=== PATIENT | female | born 1975 | race African-American/Black ===

== ENCOUNTER → 2018-01-15 | Outpatient (CLI) | payer OTHER ==
--- NOTE | 2018-01-15 11:31 | CT ---
EXAMINATION TYPE: CT ankle LT wo con DATE OF EXAM: 01/15/2018 COMPARISON: 8 25 cm HISTORY: Eval fibular impingment CT DLP: 235.[address] of the left ankle with reconstruction imaging. TECHNIQUE: Unenhanced CT of the left ankle was performed with bone and soft tissue window settings slater bmitted in the axial coronal and sagittal planes. At a separate workstation [id number] TR imaging was obtai joesph. FINDINGS: There is evidence of postoperative fixation with anterior fixation plate and screws distal tibia and talus. There is tibiotalar fusion noted as well as fusion of the distal fibula and adjacent tibia. I do not see evidence for acute fracture. Well-corticated ossific densities noted. Os calcis is intact. IMPRESSION: 1. Stable tibiotalar arthrodesis. Distal tibiofibular arthrodesis also noted.
== END | disposition home or self-care (01) ==
LOC: RADCTMAIN 09:42
PROVIDERS: ATTEND Orthopaedic Surgery Foot and Ankle Surgery
DX: M93.272 Osteochondritis dissecans, left ankle and joints of left foot (principal); M65.872 Other synovitis and tenosynovitis, left ankle and foot; Z98.1 Arthrodesis status

== ENCOUNTER → 2021-06-16 | Outpatient (CLI) | payer OTHER ==
[2021-06-16 16:23] LABS: Appearance,Urine Cloudy (Clear); Bacteria,Urine Moderate /hpf; Bilirubin,Urine Negative (Negative); Blood,Urine Negative (Negative); Color,Urine Yellow; Glucose,Urine (UA) Negative (Negative); Ketones,Urine Negative (Negative); Leukocyte Esterase,Urine Small (Negative); Mucus,Urine Many /hpf; Nitrite,Urine Positive (Negative); Protein,Urine Trace (Negative); RBC,Urine <1 /hpf (0-5); Specific Gravity,Urine 1.019 (1.001-1.035); Squamous Epithelial Cell,Urine 8 /hpf (0-4); Urobilinogen,Urine <2.0 mg/dL (<2.0); WBC,Urine 11 /hpf (0-5)
[2021-06-16 22:38] LABS: HGB 8.9 g/dL (12.0-15.0); MCH 17.5 pg (27.0-32.0); MCHC 26.2 g/dL (32.0-37.0); MCV 66.7 fL (80.0-97.0); Mean Platelet Volume 10.6 fL (9.5-12.2); Platelet Count 695 X 10*3/uL (140-440); RDW 23.7 % (11.5-14.5); WBC 6.35 X 10*3/uL (4.50-10.00)
[2021-06-16 23:24] LABS: Basophils # (A) 0.03 X 10*3/uL (0.00-0.10); Basophils % (A) 0.5 %; Eosinophils # (A) 0.09 X 10*3/uL (0.04-0.35); Eosinophils % (A) 1.4 %; Lymphocytes # (A) 1.41 X 10*3/uL (0.90-5.00); Lymphocytes % (A) 22.2 %; Monocytes # (A) 0.26 X 10*3/uL (0.20-1.00); Monocytes % (A) 4.1 %; Neutrophils # (A) 4.54 X 10*3/uL (1.80-7.70); Neutrophils % (A) 71.5 %
[2021-06-16 23:25] LABS: Microcytosis (M) 2+; Schistocytes 1+
[2021-06-17 06:33] LABS: Cardiolipin Ab IgG Interp NEGATIVE (NEGATIVE); Cardiolipin Ab IgM Interp NEGATIVE (NEGATIVE); Cardiolipin IgA Antibody <2.0 U/mL; Cardiolipin IgM Antibody <1.5 U/mL
[2021-06-17 06:43] LABS: ALT 15 U/L (8-44); AST 26 U/L (13-35); African American GFR (CKD) 126.7 (60.0-200.0); Albumin/Globulin Ratio 1.29 (1.60-3.17); Alkaline Phosphatase 74 U/L (41-126); Blood Urea Nitrogen <5.0 mg/dL (9.0-27.0); Calcium 8.8 mg/dL (8.7-10.3); Carbon Dioxide 21.7 mmol/L (21.6-31.8); Chloride 105 mmol/L (96-109); Globulin 3.1 g/dL (1.6-3.3); Glucose 85 mg/dL (70-110); Non-African American GFR(CKD) 109.3 (60.0-200.0); Potassium 4.2 mmol/L (3.5-5.5); Sodium 139 mmol/L (135-145); Total Bilirubin 0.4 mg/dL (0.2-1.2); Total Protein 7.1 g/dL (6.2-8.2)
[2021-06-19 11:54] LABS: Anti-Thrombin III Antigen 77 % (80 - 120); Protein S Antigen 109 % (50 - 140)
== END | disposition home or self-care (01) ==
LOC: LABWHC1 15:11
PROVIDERS: ATTEND Psychiatry & Neurology Neurology
DX: I63.9 Cerebral infarction, unspecified (principal)
CPT/HCPCS: 36415; 80053; 81001; 81241; 81291; 85025; 85301; 85303; 85305; 85306; 85610; 85613; 85730; 86147

== ENCOUNTER → 2022-09-21 | Outpatient (CLI) | payer OTHER ==
[2022-09-21 23:34] LABS: Chol/HDL Ratio 4.26 Ratio; LDL Cholesterol,Calculated 65.5 mg/dL (0.0-131.0)
[2022-09-21 23:39] LABS: ALT 10 U/L (8-44); AST 19 U/L (13-35); African American GFR (CKD) 133.6 (60.0-200.0); Albumin 3.6 g/dL (3.8-4.9); Alkaline Phosphatase 99 U/L (41-126); Blood Urea Nitrogen 3.5 mg/dL (9.0-27.0); Calcium 9.5 mg/dL (8.7-10.3); Carbon Dioxide 23.8 mmol/L (20.0-27.5); Chloride 100 mmol/L (96-109); Globulin 3.6 g/dL (1.6-3.3); Glucose 68 mg/dL (70-110); Non-African American GFR(CKD) 115.3 (60.0-200.0); Sodium 136 mmol/L (135-145); Total Protein 7.2 g/dL (6.2-8.2)
[2022-09-21 23:52] LABS: HCT 31.8 % (37.2-46.3); HGB 8.3 g/dL (12.0-15.0); MCH 16.7 pg (27.0-32.0); MCHC 26.1 g/dL (32.0-37.0); Mean Platelet Volume 10.4 fL (9.5-12.2); Microcytosis (M) 3+; NRBC Per 100 WBC 0 /100 WBCS (0.0-0.0); Platelet Count 823 X 10*3/uL (140-440); RBC 4.97 X 10*6/uL (4.10-5.20); RDW 23.1 % (11.5-14.5); WBC 11.29 X 10*3/uL (4.50-10.00)
[2022-09-24 12:08] LABS: % Iron Saturation 2.26 (12.00-45.00)
== END | disposition home or self-care (01) ==
LOC: LABWHC1 14:32
PROVIDERS: ATTEND Internal Medicine Interventional Cardiology
DX: E78.2 Mixed hyperlipidemia (principal); D64.9 Anemia, unspecified
CPT/HCPCS: 36415; 80053; 80061; 83540; 83550; 85027

== ENCOUNTER → 2023-01-21 | Outpatient (CLI) | payer OTHER ==
--- NOTE | 2023-01-22 08:29 | MM ---
Reason for Exam: Screening (asymptomatic). Last mammogram was performed 8 year(s) and 3 month(s) ago. Patient History: Menarche at age 11. First Full-Term at age 28. Maternal aunt had breast cancer, age 65. Risk Values: Mary 5 year model risk: 1.0%. NCI Lifetime model risk: 10.2%. Prior Study Comparison: 10/25/2014 Bilateral Screening Mammogram, [facility] [place]. Tissue Density: There are scattered fibroglandular densities. Findings: Analyzed By CAD. There is no suspicious group of microcalcifications or new suspicious mass in either breast. Overall Assessment: Negative, BI-RAD 1 Management: Screening Mammogram of both breasts in 1 year. A clinical breast exam by your physician is recommended on an annual basis and results should be correlated with mammographic findings. Electronically signed and approved by: Aleksandr De La Cruz M.D. Radiologis
== END | disposition home or self-care (01) ==
LOC: RADMAMWWP 07:58
PROVIDERS: ATTEND Obstetrics & Gynecology
DX: Z12.31 Encounter for screening mammogram for malignant neoplasm of breast (principal); Z80.3 Family history of malignant neoplasm of breast
CPT/HCPCS: 77063; 77067

== ENCOUNTER → 2023-02-18 | Outpatient (CLI) | payer OTHER ==
[2023-02-18 17:04] LABS: HCT 44.5 % (37.2-46.3); HGB 13.8 g/dL (12.0-15.0); MCH 26.7 pg (27.0-32.0); MCV 86.2 fL (80.0-97.0); Mean Platelet Volume 10.8 fL (9.5-12.2); NRBC Per 100 WBC 0 /100 WBCS (0.0-0.0); Platelet Count 370 X 10*3/uL (140-440); RBC 5.16 X 10*6/uL (4.10-5.20); RDW 14.4 % (11.5-14.5); WBC 8.33 X 10*3/uL (4.50-10.00)
[2023-02-18 17:58] LABS: % Iron Saturation 9.98 (12.00-45.00); Chol/HDL Ratio 3.88 Ratio; Iron 36 ug/dL (50-170); LDL Cholesterol,Calculated 81.1 mg/dL (0.0-131.0); Total Iron Binding Capacity 360 ug/dL (228-460)
[2023-02-18 19:01] LABS: HIV 2 AB Non-Reactive (Non-Reactive); HIV AB P24 Non-Reactive (Non-Reactive); HIV P24 AG Non-Reactive (Non-Reactive)
== END | disposition home or self-care (01) ==
LOC: LABWHC1 08:12
PROVIDERS: ATTEND Internal Medicine
DX: E78.5 Hyperlipidemia, unspecified (principal); D64.9 Anemia, unspecified; E03.9 Hypothyroidism, unspecified
CPT/HCPCS: 36415; 80061; 82306; 83540; 83550; 84439; 84443; 84481; 85027; 87390

== ENCOUNTER → 2023-11-19 | Outpatient (CLI) | payer OTHER ==
[2023-11-19 20:06] LABS: Blood Urea Nitrogen 5.4 mg/dL (9.0-27.0); Potassium 3.9 mmol/L (3.5-5.5)
== END | disposition home or self-care (01) ==
LOC: LABWHC1 14:42
PROVIDERS: ATTEND Dermatology Procedural Dermatology
DX: L70.0 Acne vulgaris (principal); A63.0 Anogenital (venereal) warts
CPT/HCPCS: 36415; 82565; 84132; 84520

== ENCOUNTER → 2024-01-22 | Outpatient (CLI) | payer OTHER ==
[2024-01-23 02:12] LABS: Basophils # (A) 0.05 X 10*3/uL (0.00-0.10); Basophils % (A) 0.5 %; Eosinophils # (A) 0.13 X 10*3/uL (0.04-0.35); Eosinophils % (A) 1.3 %; HCT 46.1 % (37.2-46.3); MCH 28.5 pg (27.0-32.0); MCHC 32.5 g/dL (32.0-37.0); MCV 87.6 FL (80.0-97.0); Mean Platelet Volume 10.9 FL (9.5-12.2); Monocytes # (A) 0.41 X 10*3/uL (0.20-1.00); Monocytes % (A) 4.1 %; NRBC Per 100 WBC 0 X 10*3/uL (0.00-0.01); Neutrophils # (A) 7.37 X 10*3/uL (1.80-7.70); Neutrophils % (A) 73.8 %; Platelet Count 398 X 10*3/uL (140-440); RBC 5.26 X 10*6/uL (4.10-5.20); RDW 14.5 % (11.5-14.5); WBC 9.99 X 10*3/uL (4.50-10.00)
[2024-01-23 02:51] LABS: ALT 13 U/L (8-44); AST 13 U/L (13-35); Albumin 3.9 g/dL (3.8-4.9); Albumin/Globulin Ratio 1.15 Ratio (1.60-3.17); Alkaline Phosphatase 97 U/L (41-126); Blood Urea Nitrogen 6.9 mg/dL (9.0-27.0); Calcium 9.4 mg/dL (8.7-10.3); Carbon Dioxide 24.6 mmol/L (21.6-31.8); Chloride 104 mmol/L (96-109); Chol/HDL Ratio 4.03 Ratio; Globulin 3.4 g/dL (1.6-3.3); Glucose 81 mg/dL (70-110); LDL Cholesterol,Calculated 72.1 mg/dL (0.0-131.0); Magnesium 2.1 mg/dL (1.5-2.4); Potassium 4.2 mmol/L (3.5-5.5); Sodium 139 mmol/L (135-145); Total Bilirubin 0.4 mg/dL (0.3-1.2); Total Protein 7.3 g/dL (6.2-8.2)
== END | disposition home or self-care (01) ==
LOC: LABWHC1 15:47
PROVIDERS: ATTEND Registered Nurse
DX: E78.2 Mixed hyperlipidemia (principal); E03.2 Hypothyroidism due to medicaments and other exogenous substances; D50.9 Iron deficiency anemia, unspecified
CPT/HCPCS: 36415; 80053; 80061; 82306; 82607; 83735; 84439; 84443; 85025